=== PATIENT | female | born 1970 | race Caucasian/White ===

== ENCOUNTER 2021-11-20 00:57 | Observation (INO) | payer BC ==
[~2021-11-20] VITALS: Ht 160 cm; Wt 49.9 kg
[~2021-11-20 00:57] MED LIST: COLACE100 MG PO; FLAGYL500 MG PO; HYDROCODONE-AP1 EAC6 PO; IBUPROFEN 600600 M1 PO; LEVAQUIN 500 M500 M2 PO
[2021-11-20 01:14] VITALS: BP 136/88
[2021-11-20 01:25] LABS: URINE BILIRUBIN NEGATIVE (Negative); URINE BLOOD 3+ (Negative); URINE CLARITY CLEAR; URINE COLOR YELLOW; URINE GLUCOSE-RANDOM* NEGATIVE (Negative); URINE KETONES NEGATIVE (Negative); URINE LEUKOCYTES-REFLEX NEGATIVE (Negative); URINE NITRITE-REFLEX NEGATIVE (Negative); URINE PROTEIN (DIPSTICK) 1+ (Negative); URINE SPECIFIC GRAVITY >= 1.030 (1.005-1.035); URINE UROBILINOGEN 0.2 E.U./dl (0.2-1.0)
[2021-11-20 01:26] LABS: ABSOLUTE NEUTROPHILS 10.2 thou/uL (1.4-8.2); BASOPHILS 0.5 % (0.0-2.0); EOSINOPHILS 1.7 % (0.0-3.0); HEMATOCRIT 38.8 % (37.0-47.0); HEMOGLOBIN 12.6 gm/dL (12.0-15.0); LYMPHOCYTES 16.2 % (24.0-44.0); MCH 30.8 pg (26.0-34.0); MCHC 32.4 g/dL (28.0-37.0); MCV 95.3 fL (80.0-100.0); PLATELET COUNT 297 thou/uL (150-400); POLYS 72.6 % (36.0-66.0); RBC 4.08 mil/uL (4.20-5.00); RDW 13.9 % (10.5-14.5); WBC 14.1 thou/uL (4.0-11.0)
[2021-11-20 01:28] LABS: CALCIUM 9.4 mg/dL (8.5-10.1); CREATININE 0.9 mg/dL (0.6-1.0); POTASSIUM 3.6 mmol/L (3.5-5.1)
[2021-11-20 01:34] LABS: TOTAL BILIRUBIN 0.3 mg/dL (0.2-1.0); TOTAL PROTEIN 7.2 g/dL (6.4-8.2)
[2021-11-20 01:42] LABS: BACTERIA-REFLEX 1-9 Few /HPF (None Seen); CASTS None Seen /LPF (None Seen); CRYSTALS None Seen /LPF (None Seen); MUCUS 0-3 Light strn/LPF (None Seen); SQUAMOUS 0-3 Few /LPF (0-3); TRANSITIONAL EPITHEL CELL 0-3 Few /LPF (None Seen); URINE WBC-REFLEX 6-15 Few /HPF (0-5)
[2021-11-20 07:35] VITALS: BP 99/54
--- NOTE | 2021-11-20 08:05 | NUR ---
UROLOGY PA IN THE ROOM WITH THE PATIENT RIGHT NOW.
[2021-11-20 11:20] VITALS: BP 101/60
--- NOTE | 2021-11-20 12:05 | NUR ---
REPORT GIVEN TO OR
[2021-11-20 12:34] VITALS: BP 106/58
--- NOTE | 2021-11-20 12:34 | NUR ---
PT TO SURGERY AT THIS TIME
[2021-11-20 19:47] VITALS: BP 102/58
--- NOTE | 2021-11-20 19:53 | NUR ---
Pt. arrived to the unit before my arrival to the unit. She currently is sitting up in the bed and offers no complaints. Admission assessment and history is completed.
--- NOTE | 2021-11-21 04:15 | NUR ---
Pt. rested quietly during the night when checked on during frequent rounds. She was given melatonin (see emar) last evening to help her sleep at her requenst. No c/o nausea. Up ad evens in her room.
[2021-11-21 06:25] LABS: BASOPHILS 0.4 % (0.0-2.0); EOSINOPHILS 0.1 % (0.0-3.0); HEMATOCRIT 33.2 % (37.0-47.0); LYMPHOCYTES 19.7 % (24.0-44.0); MCH 31.8 pg (26.0-34.0); MCV 96.3 fL (80.0-100.0); MONOCYTES 8.9 % (1.0-8.0); PLATELET COUNT 230 thou/uL (150-400); POLYS 70.9 % (36.0-66.0); RBC 3.45 mil/uL (4.20-5.00); RDW 13.5 % (10.5-14.5); WBC 8.5 thou/uL (4.0-11.0)
[2021-11-21 06:44] LABS: CREATININE 0.8 mg/dL (0.6-1.0); MAGNESIUM 2.1 mg/dL (1.8-2.4); POTASSIUM 3.6 mmol/L (3.5-5.1)
[2021-11-21 08:49] VITALS: BP 113/71
[2021-11-21] MEDS ORDERED: CEFUROXIME500 MG PO (10:01)
[2021-11-21 10:19] VITALS: BP 113/71
[2021-11-21 10:25] VITALS: BP 113/71
--- NOTE | 2021-11-21 11:01 | NUR ---
PT ALERT AND ORIENTED THIS MORNING. C/O SOME MINOR "PRESSURE" IN HER BLADDER BUT OTHERWISE W/O ISSUE. READY FOR DC HOME TODAY. DC MEDS, PLAN AND INSTRUCTION REVIEWED. PT TO BE TAKEN HOME BY PRIVATE VEHICLE TO HOME.
[2021-11-23] MEDS ORDERED: NORCO5 PO (12:21)
== END 2021-11-21 11:30 | disposition home or self-care (01) ==
LOC: ER 00:57 → 4S 04:34 → EROBS 04:34 → 4S 18:16
PROVIDERS: Emergency Medicine; Nurse Practitioner; ADMIT Hospitalist; ATTEND Hospitalist
DX: N13.2 Hydronephrosis with renal and ureteral calculous obstruction (principal); Z90.710 Acquired absence of both cervix and uterus; Z79.899 Other long term (current) drug therapy; Z20.822 Contact with and (suspected) exposure to COVID-19
CPT/HCPCS: 10100; 50010; 50101; 51620; 51767; 56674; 56815; 57160; 58565; 62110; 62900; 70005